=== PATIENT | male | born 1975 | race Caucasian/White ===

== ENCOUNTER 2016-12-07 17:37 | Emergency (ER) | payer OTHER ==
[~2016-12-07] VITALS: Ht 172.7 cm; Wt 88.5 kg
[~2016-12-07 17:37] MED LIST: ALPR0.5T PO; DIAZ5TAB PO; HYDR28OI6 TP; KETO15CR TP; NYST60PO TP
[2016-12-07] MEDS ORDERED: CLINDAMYCIN 600MG PREMIX 50 ML IV ONE (18:00)
[2016-12-07] MEDS ORDERED: HYDROMORPHONE 2 MG/ML VIAL. IV ONE (18:00)
--- NOTE | 2016-12-07 18:24 | ED.ADGEN ---
Past Medical History Past Medical History: Asthma, MRSA, Other Additional Past Medical Histor: panic attack, meningitis,rosacea Past Surgical History: Other Additional Past Surgical Histo: incision and drainage Alcohol Use: Occasionally Drug Use: None Adult General Chief Complaint Chief Complaint: KNEE SWELLING HPI HPI Patient is a 41 year old male presents emergency Department with an abscess over his right knee. He has had 2 days worth of pain and swelling to the area. Patient denies any fevers but reports that he feels generally unwell. Patient is very anxious and concerned because his last abscess on his buttocks 2 years ago led to sepsis in an extended hospitalization. He describes the pain as 10 out of 10 and he is not been taking anything for it. He did state that he was "picking" at it and did get some drainage. Review of Systems Review of Systems Constitutional: Denies fever or chills. [] Eyes: Denies change in visual acuity. [] HENT: Denies nasal congestion or sore throat. [] Respiratory: Denies cough or shortness of breath. [] Cardiovascular: Denies chest pain or edema. [] GI: Denies abdominal pain, nausea, vomiting, bloody stools or diarrhea. [] : Denies dysuria. [] Musculoskeletal: Denies back pain or joint pain. [] Integument: Denies rash. [] Neurologic: Denies headache, focal weakness or sensory changes. [] Endocrine: Denies polyuria or polydipsia. [] Lymphatic: Denies swollen glands. [] Psychiatric: Denies depression or anxiety. [] Current Medications Current Medications Current Medications Medications (Trade) Dose Ordered Sig/[facility] Start Time Stop Time Status Last Admin Dose Admin Clindamycin Phosphate (Cleocin 600 Mg Premix) 50 ml @ 100 mls/hr 1X ONCE 12/07/16 18:00 12/07/16 18:29 DC 12/07/16 18:22 100 MLS/HR Fentanyl Citrate (Fentanyl 2ml Vial) 75 mcg 1X ONCE 12/07/16 19:00 12/07/16 19:01 DC 12/07/16 19:06 75 MCG Hydromorphone HCl (Dilaudid) 1 mg 1X ONCE 12/07/16 18:00 12/07/16 18:01 DC 12/07/16 18:22 1 MG Lidocaine/ Epinephrine (Xylocaine 1%-Epi 1:100,000) 20 ml STK-MED ONCE 12/07/16 18:29 12/07/16 18:30 DC Allergies Allergies Allergies Coded Allergies Type Severity Reaction Last Updated Verified I S O L A T I O N *CONTACT* Allergy Unknown 10/09/15 Yes No Known Medication Allergies Allergy Unknown 10/09/15 Yes Physical Exam Physical Exam Constitutional: Well developed, well nourished, no acute distress, non-toxic appearance. [] HENT: Normocephalic, atraumatic, bilateral external ears normal, oropharynx moist, no oral exudates, nose normal. [] Eyes: PERRLA, EOMI, conjunctiva normal, no discharge. [] Neck: Normal range of motion, no tenderness, supple, no stridor. [] Cardiovascular:Heart rate regular rhythm, no murmur [] Lungs & Thorax: Bilateral breath sounds clear to auscultation [] Abdomen: Bowel sounds normal, soft, no tenderness, no masses, no pulsatile masses. [] Skin: Warm, dry, right prepatellar shows an area of 6 x 5 cm erythema with a small area of induration right in the middle. Extremities: No tenderness, no cyanosis, no clubbing, ROM intact, no edema. [] Neurologic: Alert and oriented X 3, normal motor function, normal sensory function, no focal deficits noted. [] Psychologic: Affect normal, judgement normal, mood normal. [] Current Patient Data Vital Signs Vital Signs Date Time Temp Pulse Resp B/P Pulse Ox O2 Delivery O2 Flow Rate FiO2 12/07/16 19:06 16 Room Air 12/07/16 17:54 99.2 108 122/78 96 99.2 EKG EKG [] Radiology/Procedures Radiology/Procedures Right x-ray interpreted by me, prepatellar edema with no bony abnormalities [] Course & Med Decision Making Course & Med Decision Making Pertinent Labs and Imaging studies reviewed. (See chart for details) IV clindamycin, Dilaudid, x-ray, and incision and drainage here. [] Dragon Disclaimer Dragon Disclaimer This electronic medical record was generated, in whole or in part, using a voice recognition dictation system. Incision and Drainage Indication: abscess Procedure: The patient was positioned appropriately. Local anesthesia was 1% lidocaine with epi. An incision was then made over the apex of the lesion and minimal purulent material was expressed. The patients tetanus status updated as needed. The patient tolerated the procedure well. Complications: none. EUGENE JENNINGS MD Dec 07, 2016 18:24
[2016-12-07] MEDS ORDERED: LIDOCAINE 1%/EPI 1:100,000 20 ML VIAL. ONE (18:29)
[2016-12-07] MEDS ORDERED: FENTANYL PF 100 MCG/2 ML VIAL. IV ONE (19:00)
[2016-12-07] MEDS ORDERED: HYDR-971 PO (19:13)
[2016-12-07] MEDS ORDERED: SULF1TAB24 PO (19:13)
[2016-12-07 19:16] VITALS: BP 120/83
--- NOTE | 2016-12-08 08:03 | RAD ---
Exam performed: 3 views right knee. Clinical indication: Pain and swelling with redness of the skin, no injury, history of sepsis Date of Service: 12/07/16 Comparison:None available Findings: AP, oblique and lateral radiographs of the knee reveal the osseous structures to be intact and well aligned. Minimal spurring changes are seen about the articular surface of patella. There is diffuse prepatellar soft tissue swelling. No joint effusion Evidence of calcific loose body or joint effusion is absent. Impression: No acute abnormality seen in the right knee. Diffuse prepatellar soft tissue swelling noted.
== END 2016-12-07 19:47 | disposition home or self-care (01) ==
LOC: ER 17:37
DX: L02.415 Cutaneous abscess of right lower limb (principal); J45.909 Unspecified asthma, uncomplicated; F41.0 Panic disorder [episodic paroxysmal anxiety]; Z86.14 Personal history of Methicillin resistant Staphylococcus aureus infection; Z91.041 Radiographic dye allergy status
CPT/HCPCS: 10060; 73562; 96365; 96375; 99284; J1170; J3010; J3490